=== PATIENT | female | born 1970 | race African-American/Black ===

== ENCOUNTER 2018-09-17 14:23 | Outpatient (CLI) | payer OTHER ==
--- NOTE | 2018-09-18 09:36 | MMO ---
BILATERAL SCREENING MAMMOGRAM: History: 47-year-old female for screening mammography. Comparison: 09-17-18, 09-06-16, 08-28-15 FINDINGS: Bilateral MLO and CC views of the breast show scattered fibroglandular breast tissue. There is no all dence of suspicious mass, suspicious cluster of microcalcifications, or area of architectural distort ion. This study is interpreted with the assistance of computer aided detection. IMPRESSION: BIRADS category 1 - negative. Annual screening mammography is recommended. POS: [facility]
== END 2018-09-17 14:24 | disposition home or self-care (01) ==
LOC: SCSMAMMO 14:23
PROVIDERS: ATTEND Family Medicine
DX: Z12.31 Encounter for screening mammogram for malignant neoplasm of breast (principal)
CPT/HCPCS: 77067

== ENCOUNTER 2022-10-17 10:55 | Outpatient (CLI) | payer BC | END 2022-10-17 10:56 | disposition home or self-care (01) | LOC: SCSRAD 10:55 | PROVIDERS: ATTEND Family Medicine | DX: M54.50 Low back pain, unspecified (principal); M51.37 Other intervertebral disc degeneration, lumbosacral region | CPT/HCPCS: 72100; 72220 ==